=== PATIENT | female | born 1990 | race Caucasian/White ===

== ENCOUNTER 2017-08-03 18:11 | Emergency (ER) | payer BC ==
--- NOTE | 2017-08-03 18:40 | ED ---
General Adult HPI - General Chief complaint: Vaginal Bleeding Stated complaint: miscarriage 5weeks Time Seen by Provider: 08/03/17 18:27 Source: patient, RN notes reviewed Mode of arrival: ambulatory Limitations: no limitations - History of Present Illness Initial comments: 26-year-old lower abdominal cramping and vaginal bleeding. Patient has past several blood clots as well as some tissue. Bleeding began on Sunday night which was 4 days ago, started as brown spotting. She is approximately 5 weeks , last menstrual period was June 29. Reports some mild lightheadedness with standing. She has not had confirmatory ultrasound of this . She is scheduled for OB appointment early August. Denies chest pain or shortness of breath. Denies nausea vomiting or diarrhea. - Related Data Home Medications Medication Instructions Recorded Confirmed Acetaminophen Tab [Tylenol Tab] 1,000 mg PO Q6HR PRN 08/03/17 08/03/17 Allergies Allergy/AdvReac Type Severity Reaction Status Date / Time No Known Allergies Allergy Verified 08/03/17 18:27 Review of Systems ROS Statement: Those systems with pertinent positive or pertinent negative responses have been documented in the HPI. ROS Other: All systems not noted in ROS Statement are negative. Past Medical History Past Medical History: No Reported History History of Any Multi-Drug Resistant Organisms: None Reported Past Surgical History: No Surgical Hx Reported Past Psychological History: No Psychological Hx Reported Smoking Status: Never smoker Past Alcohol Use History: Occasional Past Drug Use History: None Reported General Exam Limitations: no limitations General appearance: alert, in no apparent distress Head exam: Present: atraumatic, normocephalic Eye exam: Present: normal appearance, PERRL Neck exam: Present: normal inspection. Absent: tenderness, meningismus Respiratory exam: Present: normal lung sounds bilaterally. Absent: respiratory distress Cardiovascular Exam: Present: regular rate, normal rhythm GI/Abdominal exam: Present: soft, tenderness (Mild suprapubic tenderness). Absent: distended Rectal exam: Present: normal inspection External exam: Present: normal external exam. Absent: erythema, swelling, lesions Speculum exam: Present: vaginal bleeding, other (Closed cervix, minimal bleeding ). Absent: cervical discharge, tissue By manual exam: Present: normal by manual exam. Absent: cervical motion tenderness, adnexal tenderness Back exam: Present: normal inspection, full ROM Neurological exam: Present: alert, oriented X3 Psychiatric exam: Present: normal affect, normal mood Skin exam: Present: warm, dry, intact. Absent: cyanosis, diaphoretic Course Vital Signs 08/03/17 08/03/17 18:15 19:11 Temperature 97.6 F 98.8 F Pulse Rate 81 87 Respiratory 16 18 Rate Blood Pressure 125/81 127/78 O2 Sat by Pulse 99 100 Oximetry Medical Decision Making - Medical Decision Making 26-year-old female approximately 5 weeks by LMP presenting with 4 days of vaginal bleeding. Examination, there is minimal bleeding, cervix is closed. Patient's vital signs are stable. Ultrasound is obtained, negative for ectopic , negative for intrauterine . Patient's blood type is A+. Hemoglobin stable. Patient will follow-up with OB for repeat beta hCG to ensure down trending. Patient is informed of this. Diagnosis: Completed Spontaneous miscarriage - Lab Data Result diagrams: 08/03/17 19:01 08/03/17 19:01 Lab Results 08/03/17 08/03/17 08/03/17 Range/Units 18:39 19:01 19:01 WBC 6.9 (3.8-10.6) k/uL RBC 4.51 (3.80-5.40) m/uL Hgb 13.3 (11.4-16.0) gm/dL Hct 39.6 (34.0-46.0) % MCV 87.7 (80.0-100.0) fL MCH 29.5 (25.0-35.0) pg MCHC 33.6 (31.0-37.0) g/dL RDW 11.5 (11.5-15.5) % Plt Count 279 (150-450) k/uL Neutrophils % 62 % Lymphocytes % 31 % Monocytes % 4 % Eosinophils % 1 % Basophils % 0 % Neutrophils # 4.3 (1.3-7.7) k/uL Lymphocytes # 2.1 (1.0-4.8) k/uL Monocytes # 0.3 (0-1.0) k/uL Eosinophils # 0.1 (0-0.7) k/uL Basophils # 0.0 (0-0.2) k/uL PT (9.0-12.0) sec INR (<1.2) APTT (22.0-30.0) sec Sodium 140 (137-145) mmol/L Potassium 3.7 (3.5-5.1) mmol/L Chloride 106 (98-107) mmol/L Carbon Dioxide 24 (22-30) mmol/L Anion Gap 10 mmol/L BUN 11 (7-17) mg/dL Creatinine 0.70 (0.52-1.04) mg/dL Est GFR (MDRD) Af Amer >60 (>60 ml/min/1.73 sqM) Est GFR (MDRD) Non-Af >60 (>60 ml/min/1.73 sqM) Glucose 90 (74-99) mg/dL Calcium 9.5 (8.4-10.2) mg/dL Total Bilirubin 0.3 (0.2-1.3) mg/dL AST 21 (14-36) U/L ALT 30 (9-52) U/L Alkaline Phosphatase 51 (38-126) U/L Total Protein 7.4 (6.3-8.2) g/dL Albumin 4.6 (3.5-5.0) g/dL HCG, Quant 252.2 mIU/mL Urine Color Light Red Urine Appearance Cloudy H (Clear) Urine pH 5.5 (5.0-8.0) Ur Specific [place] 1.021 (1.001-1.035) Urine Protein 1+ H (Negative) Urine Glucose (UA) Negative (Negative) Urine Ketones Negative (Negative) Urine Blood Large H (Negative) Urine Nitrite Negative (Negative) Urine Bilirubin Negative (Negative) Urine Urobilinogen <2.0 (<2.0) mg/dL Ur Leukocyte Esterase Small H (Negative) Urine RBC >182 H (0-5) /hpf Urine WBC 101 H (0-5) /hpf Ur Squamous Epith Cells 3 (0-4) /hpf Hyaline Casts 50 H (0-2) /lpf Urine Mucus Occasional H (None) /hpf Blood Type Blood Type Recheck Antibody Screen Spec Expiration Date 08/03/17 08/03/17 Range/Units 19:01 19:01 WBC (3.8-10.6) k/uL RBC (3.80-5.40) m/uL Hgb (11.4-16.0) gm/dL Hct (34.0-46.0) % MCV (80.0-100.0) fL MCH (25.0-35.0) pg MCHC (31.0-37.0) g/dL RDW (11.5-15.5) % Plt Count (150-450) k/uL Neutrophils % % Lymphocytes % % Monocytes % % Eosinophils % % Basophils % % Neutrophils # (1.3-7.7) k/uL Lymphocytes # (1.0-4.8) k/uL Monocytes # (0-1.0) k/uL Eosinophils # (0-0.7) k/uL Basophils # (0-0.2) k/uL PT 10.3 (9.0-12.0) sec INR 1.0 (<1.2) APTT 26.3 (22.0-30.0) sec Sodium (137-145) mmol/L Potassium (3.5-5.1) mmol/L Chloride (98-107) mmol/L Carbon Dioxide (22-30) mmol/L Anion Gap mmol/L BUN (7-17) mg/dL Creatinine (0.52-1.04) mg/dL Est GFR (MDRD) Af Amer (>60 ml/min/1.73 sqM) Est GFR (MDRD) Non-Af (>60 ml/min/1.73 sqM) Glucose (74-99) mg/dL Calcium (8.4-10.2) mg/dL Total Bilirubin (0.2-1.3) mg/dL AST (14-36) U/L ALT (9-52) U/L Alkaline Phosphatase (38-126) U/L Total Protein (6.3-8.2) g/dL Albumin (3.5-5.0) g/dL HCG, Quant mIU/mL Urine Color Urine Appearance (Clear) Urine pH (5.0-8.0) Ur Specific [place] (1.001-1.035) Urine Protein (Negative) Urine Glucose (UA) (Negative) Urine Ketones (Negative) Urine Blood (Negative) Urine Nitrite (Negative) Urine Bilirubin (Negative) Urine Urobilinogen (<2.0) mg/dL Ur Leukocyte Esterase (Negative) Urine RBC (0-5) /hpf Urine WBC (0-5) /hpf Ur Squamous Epith Cells (0-4) /hpf Hyaline Casts (0-2) /lpf Urine Mucus (None) /hpf Blood Type A Positive Blood Type Recheck CABO Indicated Antibody Screen NEGATIVE Spec Expiration Date 08/06/20172300 Disposition Clinical Impression: Complete miscarriage Disposition: HOME SELF-CARE Condition: Good Instructions: Miscarriage (ED) Referrals: Faraz Martinez DO [Primary Care Provider] - 1-2 days Eulalia Souza DO [Doctor of Osteopathic Medicine] - 1-2 days Time of Disposition: 20:27
[2017-08-03 19:02] LABS: Appearance,Urine Cloudy (Clear); Bilirubin,Urine Negative (Negative); Glucose,Urine (UA) Negative (Negative); Ketones,Urine Negative (Negative); Leukocyte Esterase,Urine Small (Negative); Mucus,Urine Occasional /hpf; Nitrite,Urine Negative (Negative); PH, Urine 5.5 (5.0-8.0); Particle Count 4873; Protein,Urine 1+ (Negative); RBC,Urine >182 /hpf (0-5); Specific Gravity,Urine 1.021 (1.001-1.035); Squamous Epithelial Cell,Urine 3 /hpf (0-4); UA Billing (MACRO vs. MICRO) MICRO; Urobilinogen,Urine <2.0 mg/dL (<2.0); WBC,Urine 101 /hpf (0-5)
[2017-08-03 19:12] VITALS: BP 127/78; PULSE 87; RESP 18; TEMP 98.8
[2017-08-03 19:17] LABS: Basophils % (A) 0 %; CH 30.1; CHCM 34.5; Eosinophils # (A) 0.1 k/uL (0-0.7); Eosinophils % (A) 1 %; HCT 39.6 % (34.0-46.0); HDW 2.29; HGB 13.3 gm/dL (11.4-16.0); Luc # (Auto) 0.09; Luc % (Auto) 1; Lymphocytes # (A) 2.1 k/uL (1.0-4.8); Lymphocytes % (A) 31 %; MCH 29.5 pg (25.0-35.0); MCHC 33.6 g/dL (31.0-37.0); MCV 87.7 fL (80.0-100.0); Mean Platelet Volume 6.7; Monocytes # (A) 0.3 k/uL (0-1.0); Monocytes % (A) 4 %; Neutrophils # (A) 4.3 k/uL (1.3-7.7); Neutrophils % (A) 62 %; RBC 4.51 m/uL (3.80-5.40); RDW 11.5 % (11.5-15.5); WBC 6.9 k/uL (3.8-10.6); WBC (Perox) 6.95
[2017-08-03 19:28] LABS: ALT 30 U/L (9-52); AST 21 U/L (14-36); Alkaline Phosphatase 51 U/L (38-126); Anion Gap 10 mmol/L; Blood Urea Nitrogen 11 mg/dL (7-17); Calcium 9.5 mg/dL (8.4-10.2); Carbon Dioxide 24 mmol/L (22-30); Chloride 106 mmol/L (98-107); Glucose 90 mg/dL (74-99); Non-African American GFR(MDRD) >60 (>60 ml/min/1.73 sqM); Potassium 3.7 mmol/L (3.5-5.1); Sodium 140 mmol/L (137-145); Total Bilirubin 0.3 mg/dL (0.2-1.3); Total Protein 7.4 g/dL (6.3-8.2)
[2017-08-03 19:43] LABS: Partial Thromboplastin Time 26.3 sec (22.0-30.0); Prothrombin Time 10.3 sec (9.0-12.0)
--- NOTE | 2017-08-03 19:44 | US ---
EXAMINATION TYPE: US OB <=14 wks transvag DATE OF EXAM: 08/03/2017 COMPARISON: NONE CLINICAL HISTORY: Pain. Bleeding started yesterday, heavier today with cramping EXAM PERFORMED: OBTA/OBTV EXAM MEASUREMENTS: GESTATIONAL AGE / DATING Physician Established: Not yet established Dates by LMP: (5 weeks/0 days) EDC: 04/05/2018 Dates by First Scan: No previous this is first scan Dates by Current Scan for: No IUP seen at this time MATERNAL ANATOMY Uterus: 7.7 x 4.3 x 3.5cm Right Ovary: 3.5 x 2.2 x 2.6cm Left Ovary: 3.4 x 2.8 x 2.1cm Post CDS / Adnexa: wnl Presence of free fluid: no Presence of corpus luteal cyst: not seen Presence of subchorionic bleed: no GESTATION / SURVEY No sonographic evidence for IUP seen today, endometrium = 0.3cm Date of LMP: 06/29/2017 Beta HcG (if available): pending IMPRESSION: No evidence of a . No evidence of ectopic .
== END 2017-08-03 20:44 | disposition home or self-care (01) ==
LOC: EC 18:11
DX: O03.9 Complete or unspecified spontaneous abortion without complication (principal); Z3A.01 Less than 8 weeks gestation of pregnancy
CPT/HCPCS: 36415; 76801; 76817; 80053; 81001; 84702; 85025; 85610; 85730; 86850; 86900; 86901; 87086; 99284

== ENCOUNTER → 2017-08-06 | Outpatient (CLI) | payer BC | END | disposition home or self-care (01) | LOC: LABWHC1 14:05 | PROVIDERS: ATTEND Obstetrics & Gynecology | DX: O03.9 Complete or unspecified spontaneous abortion without complication (principal) | CPT/HCPCS: 36415; 84702 ==

== ENCOUNTER 2017-10-24 16:37 | Emergency (ER) | payer BC ==
[2017-10-24 17:27] LABS: Amorphous Sediment,Urine Rare /hpf; Appearance,Urine Clear (Clear); Bacteria,Urine Occasional /hpf; Bilirubin,Urine Negative (Negative); Blood,Urine Moderate (Negative); Color,Urine Yellow; Glucose,Urine (UA) Negative (Negative); Ketones,Urine Negative (Negative); Leukocyte Esterase,Urine Negative (Negative); Mucus,Urine Rare /hpf; Nitrite,Urine Negative (Negative); Protein,Urine Negative (Negative); RBC,Urine 19 /hpf (0-5); Specific Gravity,Urine 1.013 (1.001-1.035); Squamous Epithelial Cell,Urine 1 /hpf (0-4); Urobilinogen,Urine <2.0 mg/dL (<2.0); WBC,Urine 3 /hpf (0-5)
--- NOTE | 2017-10-24 18:08 | ED ---
Female Urogenital HPI - General Chief complaint: Vaginal Bleeding Stated complaint: Vaginal Bleeding/ 4-5 weeks Time Seen by Provider: 10/24/17 17:55 Source: patient, RN notes reviewed Mode of arrival: ambulatory Limitations: no limitations - History of Present Illness Initial comments: This is a 26-year-old A1 female who presents to the emergency department with chief complaint of vaginal bleeding. Patient states that her last menstrual period was on 09/24/2017. She states that she took a test last and it was positive. On Sunday she noticed some dark brown spotting. She figured it was normal because she should have been starting her period at that time. She states since that time she has had constant bleeding. Today she developed lower abdominal cramping and a sharp pain in her right lower quadrant. She denies fevers or chills, no urinary symptoms such as dysuria, increased frequency or hematuria, nausea or vomiting, diarrhea or constipation. Patient denies any history of abdominal surgeries. Last Menstrual Period: 09/24/17 - Related Data Home Medications Medication Instructions Recorded Confirmed Pnv No.95/Ferrous Fum/Folic AC 1 tab PO DAILY 08/14/17 10/24/17 [ Multivitamin Tablet] Allergies Allergy/AdvReac Type Severity Reaction Status Date / Time No Known Allergies Allergy Verified 10/24/17 17:59 Review of Systems ROS Statement: Those systems with pertinent positive or pertinent negative responses have been documented in the HPI. ROS Other: All systems not noted in ROS Statement are negative. Past Medical History Past Medical History: No Reported History History of Any Multi-Drug Resistant Organisms: None Reported Past Surgical History: No Surgical Hx Reported Past Psychological History: No Psychological Hx Reported Smoking Status: Never smoker Past Alcohol Use History: Occasional Past Drug Use History: None Reported General Exam - General Exam Comments Initial Comments: General: Awake and alert, well-developed; in no apparent distress. HEENT: Head atraumatic, normocephalic. Pupils are equal, round and reactive to light. Extraocular movements intact. Oropharynx moist without erythema or exudate. Neck: Supple. Normal ROM. Cardiovascular: Regular rate and rhythm. No murmurs, rubs or gallops. Chest symmetrical. Respiratory: Lungs clear to auscultation bilaterally. No wheezes, rales or rhonchi. Normal respiratory effort with no use of accessory muscles. Abdomen: Soft, non-distended. Tenderness on palpation of suprapubic and RLQ. Normal bowel sounds in all 4 quadrants. Musculoskeletal: Normal ROM, no tenderness bilateral upper and lower extremities. Ambulating normally. Skin: [place], warm and dry without rashes or lesions. Neurological: Alert and oriented x3. CN II-XII grossly intact. Speech is fluent and answers are appropriate. No focal neuro deficits. Psychiatric: Normal mood and affect. No overt signs of depression or anxiety noted. Limitations: no limitations External exam: Present: normal external exam. Absent: erythema, lesions Speculum exam: Present: vaginal bleeding (profuse dark red blood and clots). Absent: erythema, cervical discharge Course Vital Signs 10/24/17 17:06 Temperature 99.6 F Pulse Rate 91 Respiratory 16 Rate Blood Pressure 135/77 O2 Sat by Pulse 99 Oximetry Medical Decision Making - Medical Decision Making This is a 26-year-old female who presents to the emergency department for evaluation of vaginal bleeding. Patient had an at-home positive test last . She began having vaginal bleeding on Sunday. Patient states that she is now experiencing pelvic cramping. Urine hCG was not detected, however hCG quantitative serum was 3.8. Obstetric ultrasound revealed no intrauterine . Patient appears to have had a miscarriage. CBC and CMP were within normal limits. Patient does not have a white count. She is to repeat serum hCG quantitative in 48 hours and follow-up with [facility]. She was provided with a lab slip and referral to the on-call doctor.findings and plan were discussed with patient. She is in agreement voices understanding. All questions were answered. She'll be discharged home at this time. She is in no acute distress. - Lab Data Result diagrams: 10/24/17 18:14 10/24/17 18:14 Lab Results 10/24/17 10/24/17 10/24/17 Range/Units 17:11 17:11 18:14 WBC (3.8-10.6) k/uL RBC (3.80-5.40) m/uL Hgb (11.4-16.0) gm/dL Hct (34.0-46.0) % MCV (80.0-100.0) fL MCH (25.0-35.0) pg MCHC (31.0-37.0) g/dL RDW (11.5-15.5) % Plt Count (150-450) k/uL Sodium (137-145) mmol/L Potassium (3.5-5.1) mmol/L Chloride (98-107) mmol/L Carbon Dioxide (22-30) mmol/L Anion Gap mmol/L BUN (7-17) mg/dL Creatinine (0.52-1.04) mg/dL Est GFR (MDRD) Af Amer (>60 ml/min/1.73 sqM) Est GFR (MDRD) Non-Af (>60 ml/min/1.73 sqM) Glucose (74-99) mg/dL Calcium (8.4-10.2) mg/dL Total Bilirubin (0.2-1.3) mg/dL AST (14-36) U/L ALT (9-52) U/L Alkaline Phosphatase (38-126) U/L Total Protein (6.3-8.2) g/dL Albumin (3.5-5.0) g/dL HCG, Quant mIU/mL Urine Color Yellow Urine Appearance Clear (Clear) Urine pH 7.0 (5.0-8.0) Ur Specific [place] 1.013 (1.001-1.035) Urine Protein Negative (Negative) Urine Glucose (UA) Negative (Negative) Urine Ketones Negative (Negative) Urine Blood Moderate H (Negative) Urine Nitrite Negative (Negative) Urine Bilirubin Negative (Negative) Urine Urobilinogen <2.0 (<2.0) mg/dL Ur Leukocyte Esterase Negative (Negative) Urine RBC 19 H (0-5) /hpf Urine WBC 3 (0-5) /hpf Ur Squamous Epith Cells 1 (0-4) /hpf Amorphous Sediment Rare H (None) /hpf Urine Bacteria Occasional H (None) /hpf Urine Mucus Rare H (None) /hpf Urine HCG, Qual Not Detected (Not Detectd) Blood Type A Positive Blood Type Recheck No 10/24/17 10/24/17 Range/Units 18:14 18:14 WBC 6.7 (3.8-10.6) k/uL RBC 4.19 (3.80-5.40) m/uL Hgb 12.4 (11.4-16.0) gm/dL Hct 37.6 (34.0-46.0) % MCV 89.6 (80.0-100.0) fL MCH 29.5 (25.0-35.0) pg MCHC 32.9 (31.0-37.0) g/dL RDW 11.3 L (11.5-15.5) % Plt Count 287 (150-450) k/uL Sodium 143 (137-145) mmol/L Potassium 4.0 (3.5-5.1) mmol/L Chloride 106 (98-107) mmol/L Carbon Dioxide 23 (22-30) mmol/L Anion Gap 14 mmol/L BUN 13 (7-17) mg/dL Creatinine 0.70 (0.52-1.04) mg/dL Est GFR (MDRD) Af Amer >60 (>60 ml/min/1.73 sqM) Est GFR (MDRD) Non-Af >60 (>60 ml/min/1.73 sqM) Glucose 86 (74-99) mg/dL Calcium 9.7 (8.4-10.2) mg/dL Total Bilirubin 0.3 (0.2-1.3) mg/dL AST 22 (14-36) U/L ALT 28 (9-52) U/L Alkaline Phosphatase 49 (38-126) U/L Total Protein 7.5 (6.3-8.2) g/dL Albumin 4.6 (3.5-5.0) g/dL HCG, Quant 3.8 mIU/mL Urine Color Urine Appearance (Clear) Urine pH (5.0-8.0) Ur Specific [place] (1.001-1.035) Urine Protein (Negative) Urine Glucose (UA) (Negative) Urine Ketones (Negative) Urine Blood (Negative) Urine Nitrite (Negative) Urine Bilirubin (Negative) Urine Urobilinogen (<2.0) mg/dL Ur Leukocyte Esterase (Negative) Urine RBC (0-5) /hpf Urine WBC (0-5) /hpf Ur Squamous Epith Cells (0-4) /hpf Amorphous Sediment (None) /hpf Urine Bacteria (None) /hpf Urine Mucus (None) /hpf Urine HCG, Qual (Not Detectd) Blood Type Blood Type Recheck - Radiology Data Radiology results: report reviewed Obstetric ultrasound: No IUP seen at this time. Disposition Clinical Impression: Miscarriage Disposition: HOME SELF-CARE Condition: Good Instructions: Miscarriage (ED) Additional Instructions: please follow-up with Dr. Vilchis, [facility] within 1-2 days. Please have hCG Quant repeated in 48 hours on 10/26/2017. Please follow up with primary care provider within 1-2 days. Return to emergency department if symptoms should worsen or any concerns arise. Referrals: Cleveland Mcgarry DO [Primary Care Provider] - 1-2 days Brody Vilchis MD [STAFF PHYSICIAN] - 1-2 days Time of Disposition: 20:20
[2017-10-24 18:24] LABS: HCT 37.6 % (34.0-46.0); HGB 12.4 gm/dL (11.4-16.0); MCH 29.5 pg (25.0-35.0); MCHC 32.9 g/dL (31.0-37.0); MCV 89.6 fL (80.0-100.0); Mean Platelet Volume 6.7; Platelet Count 287 k/uL (150-450); RBC 4.19 m/uL (3.80-5.40); RDW 11.3 % (11.5-15.5); WBC 6.7 k/uL (3.8-10.6)
[2017-10-24 18:41] LABS: ALT 28 U/L (9-52); AST 22 U/L (14-36); Albumin 4.6 g/dL (3.5-5.0); Alkaline Phosphatase 49 U/L (38-126); Anion Gap 14 mmol/L; Blood Urea Nitrogen 13 mg/dL (7-17); Calcium 9.7 mg/dL (8.4-10.2); Carbon Dioxide 23 mmol/L (22-30); Chloride 106 mmol/L (98-107); Glucose 86 mg/dL (74-99); Sodium 143 mmol/L (137-145); Total Bilirubin 0.3 mg/dL (0.2-1.3); Total Protein 7.5 g/dL (6.3-8.2)
[2017-10-24 18:57] LABS: HCG,Quantitative Serum 3.8 mIU/mL
--- NOTE | 2017-10-24 20:14 | US ---
EXAMINATION TYPE: US OB <= 14 wk fetus DATE OF EXAM: 10/24/2017 COMPARISON: NONE CLINICAL HISTORY: vaginal bleed. Bleeding EXAM PERFORMED: Transabdominal (TA) EXAM MEASUREMENTS: GESTATIONAL AGE / DATING Physician Established: Not yet established Dates by LMP: 09/24/2017 (4 weeks/2 days) EDC: 07/01/2018 Dates by First Scan: No previous this is first scan Dates by Current Scan for: No IUP seen at this time) MATERNAL ANATOMY Uterus: 7.5 x 3.7 x 4.9 cm Right Ovary: 2.4 x 2.1 x 2.2 cm Left Ovary: 3.2 x 1.9 x 1.8 cm Post CDS / Adnexa: wnl Presence of free fluid: no GESTATION / SURVEY IUP: No IUP seen at this time Date of LMP: 09/24/2017 Beta HcG (if available): 3.8 No IUP seen at this time. IMPRESSION: Uterus is empty. No adnexal mass or free fluid. No endometrial thickening seen.
[2017-10-24 20:52] VITALS: BP 118/57; PULSE 87; RESP 18; TEMP 98.3
== END 2017-10-24 20:45 | disposition home or self-care (01) ==
LOC: EC 16:37
DX: O03.9 Complete or unspecified spontaneous abortion without complication (principal); Z3A.01 Less than 8 weeks gestation of pregnancy
CPT/HCPCS: 36415; 76801; 80053; 81001; 81025; 84702; 85027; 86900; 86901; 99284

== ENCOUNTER → 2017-10-26 | Outpatient (CLI) | payer BC | END | disposition home or self-care (01) | LOC: LABWHC1 16:42 | PROVIDERS: ATTEND Family Medicine | DX: O20.0 Threatened abortion (principal) | CPT/HCPCS: 36415; 84702 ==

== ENCOUNTER → 2019-01-21 | Outpatient (CLI) | payer BC ==
--- NOTE | 2019-01-22 09:30 | NM ---
EXAMINATION TYPE: NM hepatobiliary w EF DATE OF EXAM: 01/21/2019 COMPARISON: NONE HISTORY: Cholecystitis TECHNIQUE: After the intravenous administration of 5.14 mCi Tc 99m Mebrofenin hepatobiliary scintigra phy is performed. Immediate images post injection. FINDINGS: There is satisfactory initial accumulation of tracer by the liver. The gallbladder is visualized wit hin 30 minutes. The small bowel activity is noted within 10 minutes. At one hour 8 ounces of oral e nsure plus is given to mimic CCK and gallbladder ejection fraction is calculated at 93 %, above the u pper limited of the normal range. Therefore there is no scintigraphic evidence of cystic or common b ile duct obstruction to suggest acute cholecystitis. IMPRESSION: Gallbladder may be hyperkinetic.
== END | disposition home or self-care (01) ==
LOC: RADNMMAIN 14:52
PROVIDERS: ATTEND Surgery Plastic and Reconstructive Surgery
DX: K81.9 Cholecystitis, unspecified (principal)
CPT/HCPCS: 78226; A9537

== ENCOUNTER 2019-02-05 08:14 | Day surgery (SDC) | payer BC ==
[2019-01-31 08:33] VITALS: BMI 22.0
--- NOTE | 2019-02-05 07:56 | P.GSHP ---
History of Present Illness H&P Date: 02/05/19 CHIEF COMPLAINT: Change in bowel habits HISTORY OF PRESENT ILLNESS: The patient is a 28-year-old female who presents for colon screen. Lower endoscopy was offered for further evaluation and management. PAST MEDICAL HISTORY: Please see list. PAST SURGICAL HISTORY: Please see list. MEDICATIONS: Please see list. ALLERGIES: Please see list. SOCIAL HISTORY: No illicit drug use FAMILY HISTORY: No reports of Crohn disease or ulcerative colitis. REVIEW OF ORGAN SYSTEMS: CONSTITUTIONAL: No reports of fevers or chills. PHYSICAL EXAM: VITAL SIGNS: Stable GENERAL: Well-developed pleasant in no acute distress. HEENT: No scleral icterus. Extraocular movements grossly intact. Moist buccal mucosa. NECK: Supple without lymphadenopathy. CHEST: Unlabored respirations. Equal bilateral excursions. CARDIOVASCULAR: Regular rate and rhythm. Distal 2+ pulses. ABDOMEN: Soft, nontender, nondistended. MUSCULOSKELETAL: No clubbing, cyanosis, or edema. ASSESSMENT: 1. Change in bowel habits PLAN: 1. Recommend proceeding with a lower endoscopy Past Medical History Past Medical History: No Reported History Additional Past Medical History / Comment(s): having "yellow colored stools" History of Any Multi-Drug Resistant Organisms: None Reported Past Surgical History: No Surgical Hx Reported Additional Past Surgical History / Comment(s): wisdom teeth Past Anesthesia/Blood Transfusion Reactions: No Reported Reaction Smoking Status: Former smoker - Past Family History Mother Family Medical History: No Reported History Medications and Allergies Home Medications Medication Instructions Recorded Confirmed Type Pnv No.95/Ferrous Fum/Folic AC 1 tab PO DAILY 08/14/17 01/31/19 History [ Multivitamin Tablet] Khssoqinnfonzt-EO-Mweftkbhrp 1 tab PO DAILY 01/31/19 01/31/19 History [Folbic] Levothyroxine Sodium [Synthroid] 25 mcg PO DAILY 01/31/19 01/31/19 History Vitamin D 1 tab PO DAILY 01/31/19 History Allergies Allergy/AdvReac Type Severity Reaction Status Date / Time No Known Allergies Allergy Verified 01/31/19 08:28
[~2019-02-05 08:14] MED LIST: LACTATED RINGERS 1,000 ML IV SCH; LIDOCAINE 1% 20 ML VIAL (10MG/ML) FOR IV START INTRADERMA PRN
[2019-02-05] MEDS ORDERED: LACTATED RINGERS 1,000 ML IV ONE (08:51)
[2019-02-05 08:52] VITALS: RESP 18; TEMP 97.8
[2019-02-05] MEDS ORDERED: PROPOFOL 10 MG/ML 20 ML VIAL IV ONE (09:05)
--- NOTE | 2019-02-05 09:28 | P.PCN ---
Date of Procedure: 02/05/19 Description of Procedure: PREOPERATIVE DIAGNOSIS: Change in bowel habits with diarrhea POSTOPERATIVE DIAGNOSIS: Change in bowel habits with diarrhea OPERATION: Colonoscopy to the ileocecal valve and appendiceal orifice. Colonoscopy with random cold forceps biopsies for microscopic colitis SURGEON: Tawana Gomez MD. ANESTHESIA: MAC. INDICATIONS: The patient is a 51-year-old female who presents with change in bowel habits. Benefits and risks were described and informed consent was obtained. DESCRIPTION OF PROCEDURE: The patient had undergone Suprep. Sh had been brought into the operating room and laid in the left lateral decubitus position. After adequate intravenous sedation, the rectum was examined with 2% lidocaine jelly. No external hemorrhoids were encountered. The rectal tone was within normal limits. No lesions were palpated in the rectal vault. An Olympus colonoscope was advanced until the ileocecal valve and appendiceal orifice were clearly viewed. The prep was excellent with clear visualization of the mucosal folds. The scope was removed with visualization of each mucosal fold. No scattered diverticulosis was encountered. No colonic polyps were found. No evidence of focal colitis was found. Random cold forceps biopsies were obtained for microscopic colitis. Retroflexion of the scope demonstrated no internal hemorrhoids. The colon was desufflated. The patient had tolerated the procedure well. Withdrawal time was over 6 minutes. FINDINGS: Aronchick preparation quality scale 1 (1-5) No internal hemorrhoids No external prolapsed hemorrhoids. No arteriovenous malformations. No adenomatous polyps. No focal colitis. Random cold forceps biopsies were obtained for microscopic colitis. RECOMMENDATIONS: Lower endoscopy as needed Plan - Discharge Summary Discharge Rx Participant: No New Discharge Prescriptions: No Action Pnv No.95/Ferrous Fum/Folic AC [ Multivitamin Tablet] 1 tab PO DAILY Levothyroxine Sodium [Synthroid] 25 mcg PO DAILY Mpywyionvrqihv-AU-Ciygcincdo [Folbic] 1 tab PO DAILY Vitamin D 1 tab PO DAILY Discharge Medication List Pnv No.95/Ferrous Fum/Folic AC [ Multivitamin Tablet] 1 tab PO DAILY 08/14/17 [History] Nddiqdcuzpxroy-WV-Vyogllszxl [Folbic] 1 tab PO DAILY 01/31/19 [History] Levothyroxine Sodium [Synthroid] 25 mcg PO DAILY 01/31/19 [History] Vitamin D 1 tab PO DAILY 01/31/19 [History] Follow up Appointment(s)/Referral(s): Tawana Gomez MD [STAFF PHYSICIAN] - 02/18/19 Patient Instructions/Handouts: *Surgery [facility] - (Anesthesia) Endoscopy Discharge Instructions, Colonoscopy (DC) Activity/Diet/Wound Care/Special Instructions: Colonoscopy as needed Discharge Disposition: HOME SELF-CARE
[2019-02-05 09:50] VITALS: BP 101/62; PULSE 64
== END 2019-02-05 10:29 | disposition home or self-care (01) ==
LOC: ORWHC2ENDO 08:14
PROVIDERS: ATTEND Surgery Plastic and Reconstructive Surgery
DX: R19.7 Diarrhea, unspecified (principal); E07.9 Disorder of thyroid, unspecified; Z87.891 Personal history of nicotine dependence; Z79.890 Hormone replacement therapy; Z79.899 Other long term (current) drug therapy
CPT/HCPCS: 81025; 88305; 45380; J2704

== ENCOUNTER → 2019-02-24 | Outpatient (CLI) | payer BC | END | disposition home or self-care (01) | LOC: LABWHC1 13:33 | PROVIDERS: ATTEND Obstetrics & Gynecology Reproductive Endocrinology | DX: O09.291 Supervision of pregnancy with other poor reproductive or obstetric history, first trimester (principal) | CPT/HCPCS: 36415; 84144 ==

== ENCOUNTER → 2019-03-28 | Outpatient (CLI) | payer BC | LOC: LABWHC1 07:18 | PROVIDERS: ATTEND Obstetrics & Gynecology Reproductive Endocrinology | DX: N97.8 Female infertility of other origin (principal); Z32.00 Encounter for pregnancy test, result unknown | CPT/HCPCS: 36415; 84144; 84702 ==

== ENCOUNTER → 2019-06-05 | Outpatient (CLI) | payer BC ==
[2019-06-05 17:30] LABS: Basophils # (A) 0.1 k/uL (0-0.2); Basophils % (A) 1 %; Eosinophils # (A) 0.1 k/uL (0-0.7); Eosinophils % (A) 1 %; HCT 36.5 % (34.0-46.0); HGB 12.6 gm/dL (11.4-16.0); Lymphocytes # (A) 2.2 k/uL (1.0-4.8); Lymphocytes % (A) 31 %; MCH 29.8 pg (25.0-35.0); MCHC 34.4 g/dL (31.0-37.0); MCV 86.8 fL (80.0-100.0); Mean Platelet Volume 6.5; Monocytes # (A) 0.3 k/uL (0-1.0); Monocytes % (A) 4 %; Neutrophils # (A) 4.4 k/uL (1.3-7.7); Neutrophils % (A) 62 %; Platelet Count 274 k/uL (150-450); RBC 4.21 m/uL (3.80-5.40); RDW 11.7 % (11.5-15.5); WBC 7.1 k/uL (3.8-10.6)
[2019-06-05 18:31] LABS: Erythrocyte Sedimentation Rate 9 mm/hr (0-20)
[2019-06-06 00:13] LABS: Thyroid Peroxidase Antibodies <28.0 U/mL (0.0-60.0)
[2019-06-06 00:52] LABS: Gliadin AB IgA, Deaminated NEGATIVE (NEGATIVE); Gliadin AB IgA, Unit <0.2 U/mL; Gliadin AB IgG, Deaminated NEGATIVE (NEGATIVE)
[2019-06-06 01:21] LABS: Egg White IgE <0.10 kU/L
[2019-06-06 01:22] LABS: Peanut IgE <0.10 kU/L; Soybean IgE <0.10 kU/L
[2019-06-06 11:38] LABS: Almond IgE <0.35 kU/L (<0.35); Almond IgE Class CLASS 0; Pistachio IgE Class CLASS 0
[2019-06-06 11:39] LABS: Green Bean IgE <0.35 kU/L (<0.35); Green Bean IgE Class CLASS 0
== END | disposition home or self-care (01) ==
LOC: LABWHC1 16:40
PROVIDERS: ATTEND Allergy & Immunology
DX: E06.3 Autoimmune thyroiditis (principal); K59.09 Other constipation; Z91.018 Allergy to other foods
CPT/HCPCS: 36415; 82784; 83516; 85025; 85652; 86003; 86376; 86800

== ENCOUNTER → 2019-08-20 | Outpatient (CLI) | payer BC | LOC: LABWHC1 07:59 | PROVIDERS: ATTEND Obstetrics & Gynecology Reproductive Endocrinology | DX: N96 Recurrent pregnancy loss (principal) | CPT/HCPCS: 36415; 84144 ==

== ENCOUNTER → 2021-03-03 | Outpatient (CLI) | payer BC | END | disposition home or self-care (01) | LOC: LABWHC1 07:28 | PROVIDERS: ATTEND Obstetrics & Gynecology Reproductive Endocrinology | DX: N97.9 Female infertility, unspecified (principal) | CPT/HCPCS: 36415; 84144 ==

== ENCOUNTER → 2021-11-09 | Outpatient (CLI) | payer BC ==
[2021-11-09 15:15] LABS: Estradiol 99.1 pg/mL; HCG,Quantitative Serum 33.3 (0.0-6.0)
== END | disposition home or self-care (01) ==
LOC: LABWHC1 07:42
PROVIDERS: ATTEND Obstetrics & Gynecology Reproductive Endocrinology
DX: Z13.29 Encounter for screening for other suspected endocrine disorder (principal); N97.9 Female infertility, unspecified
CPT/HCPCS: 36415; 82670; 84144; 84443; 84702

== ENCOUNTER → 2021-11-22 | Outpatient (CLI) | payer BC | END | disposition home or self-care (01) | LOC: LABWHC1 07:44 | PROVIDERS: ATTEND Obstetrics & Gynecology Reproductive Endocrinology | DX: Z32.00 Encounter for pregnancy test, result unknown (principal); N97.9 Female infertility, unspecified | CPT/HCPCS: 36415; 82670; 84144; 84702 ==

== ENCOUNTER → 2021-12-01 | Outpatient (CLI) | payer BC | END | disposition home or self-care (01) | LOC: LABWHC1 07:44 | PROVIDERS: ATTEND Obstetrics & Gynecology Reproductive Endocrinology | DX: Z34.01 Encounter for supervision of normal first pregnancy, first trimester (principal); Z3A.00 Weeks of gestation of pregnancy not specified | CPT/HCPCS: 36415; 84144 ==

== ENCOUNTER → 2022-09-13 | Outpatient (CLI) | payer BC ==
[2022-09-13 12:43] LABS: Glucose 2 Hour 111 mg/dL
== END | disposition home or self-care (01) ==
LOC: LABWHC1 08:34
PROVIDERS: ATTEND Obstetrics & Gynecology Obstetrics
DX: O24.419 Gestational diabetes mellitus in pregnancy, unspecified control (principal); Z3A.00 Weeks of gestation of pregnancy not specified
CPT/HCPCS: 36415; 82947; 82950

== ENCOUNTER 2023-08-31 15:55 | Emergency (ER) | payer BC ==
[2023-08-31 16:16] VITALS: BP 141/86; PULSE 99; RESP 16; TEMP 99.4
--- NOTE | 2023-08-31 17:43 | US ---
EXAMINATION TYPE: Ultrasound OB <= 14 week fetus DATE OF EXAM: 08/31/2023 5:27 PM COMPARISON: NONE CLINICAL INDICATION: Female, 32 years old with history of pain; Pt states light bright red vaginal bl eeding that started today. Pt states passing small clot EXAM PERFORMED: Transabdominal (TA) EXAM MEASUREMENTS: GESTATIONAL AGE / DATING Physician Established: Not yet established Dates by LMP: (5 weeks/6 days) EDC: 04/26/2024 Dates by First Scan: No previous this is first scan Dates by Current Scan for: Unable to date by today's study- too early MATERNAL ANATOMY Uterus: 8.7 x 3.9 x 4.9 cm Right Ovary: 3.8 x 3.7 x 3.4 cm Left Ovary: 2.2 x 2.1 x 1.7 cm Post CDS / Adnexa: wnl Presence of free fluid: No Presence of corpus luteal cyst: 1 cyst)= 2.0 x 2.2 x 1.8 cm, a 2nd complicated appearing cyst= 1.9 x 1.7 x 1.6 cm GESTATION / SURVEY MSD: 0.6 cm too small to date IUP: Possible small gestational sac visualized within uterus- however too small to date Date of LMP: 07/21/2023 Beta HcG (if available): Not available at this time IMPRESSION: 1. Tiny cystic locule along the fundal endometrium measuring 6 mm. Too small to date if this represen ts a gestational sac. Recommend serial beta-hCG and ultrasound follow up to ensure that appearance of a normal pole with cardiac activity. Failed and pseudogestational sac of a nonvisual ized ectopic are also in the differential at this time. 2. A 1.9 cm corpus luteum of the right ovary. A second adjacent dominant follicle of the right ovary measuring 2.2 cm.
[2023-08-31 17:45] LABS: Basophils % (A) 0 %; Eosinophils % (A) 1 %; HCT 38.4 % (34.0-46.0); HGB 13.1 gm/dL (11.4-16.0); Lymphocytes # (A) 1.8 k/uL (1.0-4.8); Lymphocytes % (A) 27 %; MCH 30.5 pg (25.0-35.0); MCHC 34.1 g/dL (31.0-37.0); MCV 89.2 fL (80.0-100.0); Mean Platelet Volume 7.2; Monocytes # (A) 0.3 k/uL (0-1.0); Monocytes % (A) 4 %; Neutrophils # (A) 4.7 k/uL (1.3-7.7); Neutrophils % (A) 68 %; Platelet Count 255 k/uL (150-450); RDW 11.7 % (11.5-15.5); WBC 6.9 k/uL (3.8-10.6)
[2023-08-31 17:52] LABS: ALT 16 U/L (4-34); AST 23 U/L (14-36); African American GFR (CKD) >90 (>60 ml/min/1.73 sqM); Albumin 4.5 g/dL (3.5-5.0); Alkaline Phosphatase 54 U/L (38-126); Anion Gap 12 mmol/L; Blood Urea Nitrogen 12 mg/dL (7-17); Calcium 9.5 mg/dL (8.4-10.2); Carbon Dioxide 21 mmol/L (22-30); Chloride 107 mmol/L (98-107); Glucose 87 mg/dL (74-99); Non-African American GFR(CKD) >90 (>60 ml/min/1.73 sqM); Sodium 140 mmol/L (137-145); Total Bilirubin 0.4 mg/dL (0.2-1.3); Total Protein 7.3 g/dL (6.3-8.2)
[2023-08-31 18:09] LABS: HCG,Quantitative Serum 1254.7 mIU/mL
== END 2023-08-31 21:00 | disposition left against medical advice (07) ==
LOC: EC 15:55
DX: Z53.21 Procedure and treatment not carried out due to patient leaving prior to being seen by health care provider (principal); O46.91 Antepartum hemorrhage, unspecified, first trimester; Z3A.01 Less than 8 weeks gestation of pregnancy
CPT/HCPCS: 36415; 76801; 80053; 84702; 85025; 99499

== ENCOUNTER → 2023-09-04 | Outpatient (CLI) | payer BC | END | disposition home or self-care (01) | LOC: LABWHC1 15:12 | PROVIDERS: ATTEND Obstetrics & Gynecology Obstetrics | DX: O02.1 Missed abortion (principal); Z3A.00 Weeks of gestation of pregnancy not specified | CPT/HCPCS: 36415; 84702 ==

== ENCOUNTER 2024-12-01 09:40 | Inpatient (IN) | payer BC ==
[2024-12-01] MEDS ORDERED: miSOPROStoL 200 MCG TAB PO PRN (09:53)
[2024-12-01] MEDS ORDERED: TRANEXAMIC 1,000 MG/100ML-NACL 1,000 MG in EMPTY BAG 1 BAG IV PRN (09:53)
[2024-12-01] MEDS ORDERED: METHYLERGONOVINE 0.2 MG/ML 1 ML AMP IM PRN (09:53)
[2024-12-01] MEDS ORDERED: CARBOPROST TROMETHAMINE 250 MCG/ML 1 ML AMP IM PRN (09:53)
[2024-12-01] MEDS ORDERED: OXYTOCIN 10 UNIT/ML 1 ML VIAL IM PRN (09:53)
[2024-12-01] MEDS: LACTATED RINGERS 1,000 ML IV SCH ×2 (10:10→13:43)
[2024-12-01 10:59] LABS: Basophils % (A) 0 %; Eosinophils % (A) 0 %; HCT 33.8 % (34.0-46.0); HGB 11.1 gm/dL (11.4-16.0); Lymphocytes # (A) 1.7 k/uL (1.0-4.8); Lymphocytes % (A) 21 %; MCH 29.8 pg (25.0-35.0); MCHC 32.8 g/dL (31.0-37.0); Mean Platelet Volume 9.5; Monocytes # (A) 0.3 k/uL (0-1.0); Monocytes % (A) 4 %; Neutrophils # (A) 6.2 k/uL (1.3-7.7); Neutrophils % (A) 74 %; Platelet Count 163 k/uL (150-450); RBC 3.71 m/uL (3.80-5.40); WBC 8.4 k/uL (3.8-10.6)
[2024-12-01] MEDS: CITRIC ACID-SODIUM CITRATE 15 ML CUP PO ONE (11:44)
[2024-12-01] MEDS ORDERED: fentaNYL (PF) 50 MCG/ML 2 ML AMP ONE (12:06)
[2024-12-01] MEDS ORDERED: ONDANSETRON 4 MG/2 ML VIAL ONE (12:06)
[2024-12-01] MEDS ORDERED: NALBUPHINE (ANES) 10 MG/ML - 1 ML AMP ONE (12:06)
[2024-12-01] MEDS ORDERED: OXYTOCIN 30 UNITS/500 ML NS BAG IV ONE (12:06)
[2024-12-01] MEDS ORDERED: MORPHINE SULFATE (PF) 0.3 MG/0.3 ML SYR ONE (12:06)
[2024-12-01] MEDS ORDERED: NALOXONE 0.4 MG/ML 1 ML VIAL IV PRN (13:04)
[2024-12-01] MEDS ORDERED: diphenhydrAMINE 25 MG CAP PO PRN (13:04)
[2024-12-01] MEDS ORDERED: diphenhydrAMINE 50 MG CAP PO PRN (13:04)
[2024-12-01] MEDS ORDERED: ZOLPIDEM 5 MG TAB PO PRN (13:04)
[2024-12-01] MEDS ORDERED: METOCLOPRAMIDE 5 MG/ML 2 ML VIAL IVP PRN (13:04)
[2024-12-01] MEDS ORDERED: diphenhydrAMINE 50 MG/ML 1 ML VIAL IVP PRN ×2 (13:04)
[2024-12-01] MEDS ORDERED: ONDANSETRON 4 MG/2 ML VIAL IVP PRN (13:04)
[2024-12-01] MEDS: OXYTOCIN 30 UNITS/500 ML NS 30 UNIT in SALINE 1 500ML.BAG IV SCH (13:15)
[2024-12-01] MEDS: ACETAMINOPHEN IV (For NPO) 1,000 MG in EMPTY BAG 1 BAG IVPB ONE (13:41)
[2024-12-01] MEDS: IBUPROFEN IV 800 MG in SODIUM CHLORIDE 0.9% 250 ML IV ONE (16:54)
[2024-12-01] MEDS: SENNOSIDES-DOCUSATE SODIUM 1 EACH TAB PO SCH (20:44)
[2024-12-01] MEDS: ACETAMINOPHEN TAB 500 MG TAB PO SCH (20:44)
[2024-12-02] MEDS: IBUPROFEN 800 MG TAB PO SCH (01:52)
[2024-12-02] MEDS: LEVOTHYROXINE 75 MCG TAB PO SCH (05:41)
[2024-12-02 06:10] LABS: Basophils % (A) 0 %; Eosinophils # (A) 0.1 k/uL (0-0.7); Eosinophils % (A) 1 %; HCT 32.6 % (34.0-46.0); HGB 10.7 gm/dL (11.4-16.0); Lymphocytes # (A) 1.3 k/uL (1.0-4.8); Lymphocytes % (A) 13 %; MCH 30.2 pg (25.0-35.0); MCHC 32.9 g/dL (31.0-37.0); MCV 91.8 fL (80.0-100.0); Mean Platelet Volume 9.6; Monocytes # (A) 0.4 k/uL (0-1.0); Monocytes % (A) 4 %; Neutrophils # (A) 8.1 k/uL (1.3-7.7); Neutrophils % (A) 81 %; Platelet Count 168 k/uL (150-450); RBC 3.56 m/uL (3.80-5.40); RDW 13.1 % (11.5-15.5)
--- NOTE | 2024-12-02 07:48 | P.PN ---
Progress Note - Text Adequate analgesia. No anesthetic complication.
[2024-12-02] MEDS: PRENATAL VIT-IRON-FOLIC ACID 1 EACH TABLET PO SCH (12:17)
--- NOTE | 2024-12-02 12:48 | P.PNOBGPC ---
Subjective - Subjective Principal diagnosis: Postop day 1, repeat section Interval history: Patient is doing well postoperatively. She is ambulating and voiding without difficulty. Her lochia is noted to be minimal. Breast-feeding is going well. She denies pain. Patient reports: Reports appetite normal, Reports voiding normally, Reports pain well controlled, Reports ambulating normally [place]: doing well, nursing well Objective - Vital Signs Latest vital signs: Vital Signs Temp Pulse Resp BP Pulse Ox 12/02/24 08:00 98.2 F 70 17 136/73 97 12/02/24 04:00 98.3 F 85 16 112/62 96 12/01/24 23:57 98.0 F 84 16 126/79 95 12/01/24 20:00 96.3 F L 85 16 123/77 95 12/01/24 16:30 98.8 F 86 18 123/68 97 12/01/24 15:04 78 16 116/64 100 12/01/24 14:49 84 18 125/71 100 12/01/24 14:34 75 16 127/70 100 12/01/24 14:19 79 18 140/68 100 12/01/24 14:04 87 16 140/76 99 12/01/24 13:49 91 18 148/66 99 12/01/24 13:34 90 16 154/79 99 12/01/24 13:19 99 18 151/73 99 12/01/24 13:04 96.7 F L 96 18 129/73 100 Intake and Output 12/01/24 12/02/24 12/02/24 22:59 06:59 14:59 Intake Total 240 Output Total 977 1100 Balance -737 -1100 Intake: Oral 240 Output: Urine 900 1100 Uretheral ([place]) 800 Output, Quantitative 77 Blood Loss Other: Voiding Method Indwelling Catheter # Voids 1 1 - Exam Extremities: Present: normal, edema Abdomen: Present: normal appearance, soft Incision: Present: normal, dry, intact Uterus: Present: normal - Labs Labs: Abnormal Lab Results - Last 24 Hours (Table) 12/02/24 Range/Units 05:54 RBC 3.56 L (3.80-5.40) m/uL Hgb 10.7 L (11.4-16.0) gm/dL Hct 32.6 L (34.0-46.0) % Neutrophils # 8.1 H (1.3-7.7) k/uL Assessment and Plan (1) 39 weeks gestation of Current Visit: Yes Status: Acute Code(s): Z3A.39 - 39 WEEKS GESTATION OF SNOMED Code(s): 16077558 (2) History of section Current Visit: Yes Status: Acute Code(s): Z98.891 - HISTORY OF UTERINE SCAR FROM PREVIOUS SURGERY SNOMED Code(s): 052977641 (3) S/P section Current Visit: No Status: Acute Code(s): Z98.891 - HISTORY OF UTERINE SCAR FROM PREVIOUS SURGERY SNOMED Code(s): 415909599 Plan: Patient is doing well postoperatively. Plan to continue routine postoperative care. Anticipate discharge home tomorrow.
[2024-12-02 13:18] VITALS: RESP 16
[2024-12-02] MEDS ORDERED: IBUPROFEN 800 MG TAB PO SCH (18:00)
[2024-12-02] MEDS: SIMETHICONE 80 MG CHEWABLE PO PRN (18:09)
[2024-12-02 23:07] VITALS: BP 101/68; PULSE 79; TEMP 98.3
--- NOTE | 2024-12-03 16:22 | P.DS ---
Providers Date of admission: 12/01/24 09:40 Expected date of discharge: 12/03/24 Attending physician: Rossi Fields Primary care physician: Stated None - Discharge Diagnosis(es) (1) 39 weeks gestation of Status: Acute (2) History of section Status: Acute (3) S/P section Status: Acute Hospital Course: This is a 34-year-old 5 now para 2-0-3-2 that presented to labor and delivery on 12/01 for scheduled repeat section. Patient has been receiving routine care which has been complicated by diagnosis of advanced maternal age, known uterine septum with resection. Primary performed with her first secondary to uterine septum repair. For full details of the patient please see the dictated H&P. Patient was taken back to the operating port for scheduled repeat section, patient delivered a viable male infant at 1229, weight of 8 pounds 1 ounce, Apgars of 9 and 9 at 1 and 5 minutes respectively. For full details of the please see the operative report Patient's postoperative course has been uneventful. In this postoperative day #2 she is ambulating and voiding but difficulty. She is tolerating regular diet without nausea or vomiting. States her pain is well-controlled. She denies concerns. She would like discharge home. Patient Condition at Discharge: Good Plan - Discharge Summary New Discharge Prescriptions: No Action Pnv No.95/Ferrous Fum/Folic AC [ Multivitamin Tablet] 1 tab PO DAILY Levothyroxine Sodium [Synthroid] 37.5 mcg PO DAILY Discharge Medication List Pnv No.95/Ferrous Fum/Folic AC [ Multivitamin Tablet] 1 tab PO DAILY 08/14/17 [History] Levothyroxine Sodium [Synthroid] 37.5 mcg PO DAILY 01/31/19 [History] Follow up Appointment(s)/Referral(s): Rossi Fields DO [Doctor of Osteopathic Medicine] - 12/15/24 11:30 am (Post Appointment 01-12-2025 at 8:45am) Patient Instructions/Handouts: (DC), (GEN) Activity/Diet/Wound Care/Special Instructions: No tub baths intercourse until 6 weeks . [id number] ibuprofen 600 mg or 3 tablets every 6 hours as needed for pain. Routine follow-up in 2 weeks. Discharge Disposition: HOME SELF-CARE
--- NOTE | 2024-12-05 08:24 | P.HPOB ---
History of Present Illness H&P Date: 12/01/24 Chief Complaint: IUP at 39-0/7 weeks history of section for uterine surgery This is a 34-year-old -0-3-1 that presents to labor and delivery at 39-0/7 weeks, estimated due date of 12/08. Patient has a prior section secondary to uterine septum removal with [facility] [place]. Patient has been receiving routine care which has been essentially uncomplicated. Patient notes good movement denies vaginal bleeding or contractions. Patient has a known blood type of A+, rubella status immune, hepatitis B surface engine negative, HIV negative, RPR nonreactive, group beta strep culture is negative. Review of Systems Constitutional: Denies chills, Denies fatigue, Denies fever Ears, nose, mouth and throat: Denies headache Cardiovascular: Reports leg edema Respiratory: Denies dyspnea Gastrointestinal: Denies constipation, Denies diarrhea, Denies nausea, Denies vomiting Genitourinary: Reports Past Medical History Past Medical History: Thyroid Disorder History of Any Multi-Drug Resistant Organisms: None Reported Past Surgical History: Section Additional Past Surgical History / Comment(s): [place] teeth and uterine septum repair Past Anesthesia/Blood Transfusion Reactions: No Reported Reaction Past Psychological History: Anxiety Smoking Status: Never smoker Past Drug Use History: None Reported - Past Family History Father Family Medical History: Hypertension Mother Family Medical History: Hypertension Brother(s) Family Medical History: Diabetes Mellitus Medications and Allergies Home Medications Medication Instructions Recorded Confirmed Type Pnv No.95/Ferrous Fum/Folic AC 1 tab PO DAILY 08/14/17 12/01/24 History [ Multivitamin Tablet] Levothyroxine Sodium [Synthroid] 37.5 mcg PO DAILY 01/31/19 12/01/24 History Allergies Allergy/AdvReac Type Severity Reaction Status Date / Time No Known Allergies Allergy Verified 12/01/24 09:50 Exam Osteopathic Statement: *. No significant issues noted on an osteopathic structural exam other than those noted in the History and Physical/Consult. Vital Signs Temp Pulse Resp BP Pulse Ox 12/01/24 09:56 97.3 F L 77 18 138/79 100 Intake and Output 11/30/24 12/01/24 12/01/24 22:59 06:59 14:59 Other: Weight 77.111 kg Targeted physical exam is performed this date in general is well-nourished well- developed female in no acute distress, breathing is nonlabored, abdomen is gravid, cervical exam is deferred, heart tones are noted to be category 1 and she is not aleah. Results Result Diagrams: 12/01/24 10:10 Abnormal Lab Results - Last 24 Hours (Table) 12/01/24 Range/Units 10:10 RBC 3.71 L (3.80-5.40) m/uL Hgb 11.1 L (11.4-16.0) gm/dL Hct 33.8 L (34.0-46.0) % Assessment and Plan (1) 39 weeks gestation of Current Visit: Yes Status: Acute Code(s): Z3A.39 - 39 WEEKS GESTATION OF SNOMED Code(s): 04565417 (2) History of section Narrative/Plan: Secondary to uterine septum repair Current Visit: Yes Status: Acute Code(s): Z98.891 - HISTORY OF UTERINE SCAR FROM PREVIOUS SURGERY SNOMED Code(s): 421279373 Plan: 34-year-old -0-3-1 at 39-0/7 weeks presents for repeat section. Patient is counseled on section and informed consent is obtained. Reviewed risks with patient including but not limited to infection, bleeding, damage to bladder, bowel, injury. Patient states understanding. Anesthesia into see patient. Will proceed to operating suite.
--- NOTE | 2024-12-05 08:24 | P.OP ---
Date of Procedure: 12/01/24 Preoperative Diagnosis: Term History of section x 1 History of uterine septum repair AMA Postoperative Diagnosis: Same Procedure(s) Performed: Repeat section Anesthesia: spinal Surgeon: Rossi Fields [facility] Ot #1: Sin Garcia Estimated Blood Loss (ml): 225 IV fluids (ml): 700 Urine output (ml): 200 (Clear yellow in [place]evedo bag) Pathology: none sent Condition: stable Indications for Procedure: History of section for uterine septum repair Operative Findings: Viable male delivered at 1229, weight of 8 pounds 1 ounces, Apgars of 9 and 9 at 1 and 5 minutes respectively. Description of Procedure: The patient was prepped and draped in the usual fashion after spinal anesthesia was administered by the anesthesia department. A Pfannenstiel incision was made and extended of the abdominal cavity without difficulty. (Dense midline scarring was appreciated in the subcutaneous tissue and upon entry into the peritoneal cavity). The bladder peritoneum was elevated and incised and reflected distally. A 2 cm incision was made in the transverse plane of the lower uterine segment to enter the uterus at which time clear fluid was noted. The incision was extended in both directions using the bandage scissors. The head was encountered within the field and delivered up and through the incision where the nose and mouth were thoroughly suctioned. Remainder of the was delivered onto the surgical field where the cord was doubly clamped, cut, and the was passed for resuscitative measures with weight and Apgars as noted above. The placenta was delivered manually, intact, and was grossly normal with a grossly normal three-vessel cord. The uterus was exteriorized and the interior cavity of the uterus swept of any remaining placental and membranous fragments with a laparotomy sponge. The margins of the incision were grasped with Jean clamps and the incision closed in 2 layers. First layer was a running locking layer of 0 Vicryl from margin to margin followed by a second layer of imbricating 0 Vicryl from margin to margin. Any small points of bleeding were then made hemostatic with the Bovie. Once hemostasis was achieved, the posterior cul-de-sac was suctioned with a guard and the uterine and ovarian findings are as noted above. The uterus was replaced within the abdominal cavity and the gutters swept of any remaining blood fluid or clot. The incision was again reexamined and hemostasis was noted to be excellent. Any small point of bleeding were made hemostatic with the Bovie. Once hemostasis was achieved the parietal peritoneum was loosely reapproximated. The layer of muscles were examined and made hemostatic with the Bovie. Attention was then turned to the fascia which was closed with 2 running stitches of 0 Vicryl proceeding from the lateral margins to the midpoint. The subcutaneous tissues were irrigated, made hemostatic with the Bovie, and reapproximated with a r unning stitch of 30 Vicryl. The skin was reapproximated with 4-0 Vicryl. Estimated blood loss for the case was approximately 225 mL. All sponge instrument and needle counts are correct. There were no complications. The patient tolerated the procedure well and proceeded to the recovery room in stable condition. Both mother and infant are resting comfortably in recovery.
== END 2024-12-03 11:38 | disposition home or self-care (01) | DRG 788 ==
LOC: 4FBP 09:40
PROVIDERS: ADMIT Obstetrics & Gynecology Obstetrics; ATTEND Obstetrics & Gynecology Obstetrics
PROC: 10D00Z1 Extraction of Products of Conception, Low, Open Approach (ICD-10-PCS; principal; 2024-12-02)
DX: O34.211 Maternal care for low transverse scar from previous cesarean delivery (principal); Q51.28 Other and unspecified doubling of uterus; Z37.0 Single live birth; Z3A.39 39 weeks gestation of pregnancy
CPT/HCPCS: 85025; 86850; 86900; 86901